=== PATIENT | male | born 1950 | race Caucasian/White ===

== ENCOUNTER 2023-01-07 13:47 | Outpatient (AMB) | payer OTHER, SELFPAY ==
--- NOTE | 2023-01-07 14:01 | HO.NEPHOV ---
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 He has been having multitude of issues including history of prostate cancer, history of colorectal cancer and pulmonary fibrosis as well as pulmonary hypertension. He has physicians here and in [place]. He is on home oxygen. Went over takes increased dose of prednisone, he uses Bactrim for PJP prophylaxis. He denies any nausea, vomiting, diarrhea or orthostasis. He is on mycophenolate. He has been on metformin and his blood sugar is reasonably well controlled. REPLACED BY [facility] Medical History (Updated 01/26/23 @ 21:52 by Ronnie Bear MD) Depression Hyperlipidemia Chronic kidney disease Osteoporosis Pulmonary fibrosis Rectal cancer Prostate cancer GERD (gastroesophageal reflux disease) Surgical History (Updated 01/07/23 @ 13:56 by Kady Gotti MA) History of radical prostatectomy S/P tonsillectomy and adenoidectomy H/O vasectomy Family History (Updated 01/07/23 @ 14:10 by Kady Gotti MA) Mother Gastric cancer Father No problems noted. Social History (Updated 01/07/23 @ 14:11 by Kady Gotti MA) Alcohol intake: never Patient Tobacco Use Status: Never used Tobacco Vital Signs 01/07/23 14:05 Height 5 ft 8 in Weight 174 lb 6 oz BMI 26.5 BP 102/72 Blood Pressure Location Lt brachial Position Sitting Pulse 78 Pulse Source Pulse Oximeter Physical Exam Vital Signs: Last Vital Signs Pulse 78 01/07/23 14:05 BP 102/72 01/07/23 14:05 BMI result Body Mass Index 26.5 Const Other: On Portable O2 General: comfortable and no acute distress Orientation/consciousness: patient oriented x3 HEENT Head: Yes normocephalic Mouth: Normal oral and palatal mucosa present Eyes EOM: EOMs intact bilaterally Neck Neck: Yes supple Resp Auscultation: clear to auscultation bilaterally Cardio Jugular venous distension: no JVD Rate: regular rate GI Palpation (GI): Soft to palpation Auscultation: normal bowel sounds General: Yes no CVA tenderness Back/Spine/Pelvis Back: no CVA tenderness Skin General skin exam: no rashes or lesions noted Neuro General: patient oriented x3 and moves all extremities Extrem General: Yes no pedal edema Assessment & Plan Assessment & Plan (1) ERICA (acute kidney injury): Code(s): N17.9 - Acute kidney failure, unspecified (2) CKD (chronic kidney disease) stage 3, GFR 30-59 ml/min: Code(s): N18.30 - Chronic kidney disease, stage 3 unspecified Qualifiers: Chronic kidney disease stage 3 subtype: stage 3a (GFR 45-59) Qualified Code(s): N18.31 - Chronic kidney disease, stage 3a Plan 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 He most likely has tubular injury with resultant loss of GFR and a new baseline following that event. He is also diabetic. He had chemotherapy for colorectal cancer was also over had cause some tubular stress. His urine output is good he has been taking Bactrim for PJP prophylaxis whenever he takes higher dose of prednisone. Bactrim can cause his serum creatinine go up affecting the tubular secretion or by causing AIN. I feel is a former than the latter. He maintains good hydration. He is not taking any nonsteroidal anti-inflammatory medications. I did not make any medication changes today but rather discussed all the possibilities of his ERICA, investigation and management strategies. He also had hydronephrosis by last imaging which I plan to repeat after the next set of blood work, if needed. He may have to see a urologist if his hydronephrosis persists. Follow-up lab work ordered. All questions answered. Time spent retrieving data, patient encounter and documentation 43 minutes. Follow-up given. Orders: Orders Calcium 01/07/23 N17.9 - Acute kidney failure, unspecified Electrolytes 01/07/23 N17.9 - Acute kidney failure, unspecified Blood Urea Nitrogen 01/07/23 N17.9 - Acute kidney failure, unspecified Creatinine 01/07/23 N17.9 - Acute kidney failure, unspecified Coding Level of Care Code New Pt Level 4 (70298) Diagnoses ERICA (acute kidney injury) N17.9 Stage 3a chronic kidney disease N18.31 Chronic kidney disease stage 3 subtype: stage 3a (GFR 45-59)
[2023-01-07 14:05] VITALS: BP 102/72; PULSE 78; BMI 26.5
== END 2023-01-07 14:45 | disposition home or self-care (01) ==
PROVIDERS: PCP Internal Medicine; Visit Provider Internal Medicine Nephrology
DX: N17.9 Acute kidney failure, unspecified (principal); N18.31 Chronic kidney disease, stage 3a
CPT/HCPCS: 99204

== ENCOUNTER → 2023-01-07 13:47 | Outpatient (BNVA) | payer OTHER, SELFPAY | PROVIDERS: PCP Internal Medicine; Visit Provider Internal Medicine Nephrology ==

== ENCOUNTER 2023-02-09 11:19 | Outpatient (AMB) | payer OTHER, SELFPAY ==
[2023-02-09 11:42] VITALS: BP 110/68; PULSE 80; BMI 26.6
--- NOTE | 2023-02-09 11:42 | HO.NEPHOV ---
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 He has been having multitude of issues including history of prostate cancer, history of colorectal cancer and pulmonary fibrosis as well as pulmonary hypertension. He has physicians here and in [place]. He is on home oxygen. He has been having lower O2 saturation and is going to undergo CT scan with IV contrast this evening to R/O PE. He had some issues with swallowing and had his Sildanefil was held . He also underwent Barium swallow. He has held his metformin in preparation for getting CT scan with IV contrast. He doesn not use Bactrim for PJP prophylaxis anymore. He denies any nausea, vomiting, diarrhea or orthostasis. He is on mycophenolate. His blood sugar is reasonably well controlled. His last serum creatinine has been between 1.3-1.4 [facility] Medical History (Updated 01/26/23 @ 21:52 by Ronnie Bear MD) Depression Hyperlipidemia Chronic kidney disease Osteoporosis Pulmonary fibrosis Rectal cancer Prostate cancer GERD (gastroesophageal reflux disease) Surgical History History of radical prostatectomy S/P tonsillectomy and adenoidectomy H/O vasectomy Family History Mother Gastric cancer Father No problems noted. Social History Alcohol intake: never Patient Tobacco Use Status: Never used Tobacco Vital Signs 02/09/23 11:42 Height 5 ft 8 in Weight 175 lb 4 oz BMI 26.6 BP 110/68 Blood Pressure Location Lt brachial Position Sitting Pulse 80 Pulse Source Pulse Oximeter Physical Exam Vital Signs: Last Vital Signs Pulse 80 02/09/23 11:42 BP 110/68 02/09/23 11:42 BMI result Body Mass Index 26.6 Const Other: On O2 by portable machine General: comfortable and no acute distress Orientation/consciousness: patient oriented x3 HEENT Head: Yes normocephalic Mouth: Normal oral and palatal mucosa present Eyes EOM: EOMs intact bilaterally Neck Neck: Yes supple Resp Other: mildly tachypneic Auscultation: crackles Cardio Jugular venous distension: no JVD Rate: regular rate GI Palpation (GI): Soft to palpation Auscultation: normal bowel sounds General: Yes no CVA tenderness Back/Spine/Pelvis Back: no CVA tenderness Skin General skin exam: no rashes or lesions noted Neuro General: patient oriented x3 and moves all extremities Extrem General: Yes no pedal edema Assessment & Plan Assessment & Plan (1) CKD (chronic kidney disease) stage 3, GFR 30-59 ml/min: Code(s): N18.30 - Chronic kidney disease, stage 3 unspecified Qualifiers: Chronic kidney disease stage 3 subtype: stage 3a (GFR 45-59) Qualified Code(s): N18.31 - Chronic kidney disease, stage 3a Plan 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 He is also diabetic. He had chemotherapy for colorectal cancer was also over had cause some tubular stress. His urine output is good . He was taking Bactrim for PJP prophylaxis whenever he takes higher dose of prednisone, which he doesnt take anymore. Bactrim can cause his serum creatinine go up affecting the tubular secretion or by causing AIN. He maintains good hydration. He is not taking any nonsteroidal anti-inflammatory medications. I did not make any medication changes today but rather discussed all the management strategies. He also had hydronephrosis by last imaging which I plan to repeat after the next visit. He may have to see a urologist if his hydronephrosis persists. Follow-up lab work ordered. All questions answered. Follow-up given. Orders: Orders Blood Urea Nitrogen Today N17.9 - Acute kidney failure, unspecified, N18.30 - Chronic kidney disease, stage 3 unspecified Electrolytes Today N17.9 - Acute kidney failure, unspecified, N18.30 - Chronic kidney disease, stage 3 unspecified Creatinine Today N18.30 - Chronic kidney disease, stage 3 unspecified Coding Level of Care Code Est Pt Level 4 (31640) Diagnoses Stage 3a chronic kidney disease N18.31 Chronic kidney disease stage 3 subtype: stage 3a (GFR 45-59) Results Reviewed Nephrology Results: No Data to Display
== END 2023-02-09 12:18 | disposition home or self-care (01) ==
PROVIDERS: PCP Internal Medicine; Visit Provider Internal Medicine Nephrology
DX: N18.31 Chronic kidney disease, stage 3a (principal)
CPT/HCPCS: 99214

== ENCOUNTER → 2023-02-09 11:19 | Outpatient (BNVA) | payer OTHER, SELFPAY | PROVIDERS: PCP Internal Medicine; Visit Provider Internal Medicine Nephrology ==